=== PATIENT | male | born 1965 | race Caucasian/White ===

== ENCOUNTER → 2018-02-14 | Outpatient (CLI) | payer MEDICARE ==
[~2018-02-14] VITALS: Ht 190.5 cm; Wt 117.9 kg
[~2018-02-14] MED LIST: ASPIR 8181 M1 PO; GLUCOPHAGE500 MG PO; GLUCOTROL XL10 MG PO; LIPITOR40 MG PO; MICROZIDE12.5 M1 PO; MULTIVITAMIN1 EAC2 PO; NORVASC5 MG PO; TRULICITY0.75 MG/0. SC; ZESTRIL40 MG PO
== END | disposition home or self-care (01) ==
LOC: AMB 10:55
PROVIDERS: Internal Medicine
PROC: 0DBL8ZX Excision of Transverse Colon, Via Natural or Artificial Opening Endoscopic, Diagnostic (ICD-10-PCS; principal; 2018-02-14)
PROC: 0DBP8ZX Excision of Rectum, Via Natural or Artificial Opening Endoscopic, Diagnostic (ICD-10-PCS; principal; 2018-02-14)
DX: Z12.11 Encounter for screening for malignant neoplasm of colon (principal); D12.3 Benign neoplasm of transverse colon; K62.1 Rectal polyp; K64.8 Other hemorrhoids; Z79.82 Long term (current) use of aspirin; E78.5 Hyperlipidemia, unspecified; Z87.891 Personal history of nicotine dependence; E11.9 Type 2 diabetes mellitus without complications; Z79.84 Long term (current) use of oral hypoglycemic drugs; E66.9 Obesity, unspecified; D49.2 Neoplasm of unspecified behavior of bone, soft tissue, and skin; I10 Essential (primary) hypertension; K59.00 Constipation, unspecified
CPT/HCPCS: 82948; 88305; 93005